=== PATIENT | male | born 1995 | race Caucasian/White ===

== ENCOUNTER 2024-04-23 10:44 | Emergency (ER) | payer OTHER ==
[~2024-04-23] VITALS: Ht 175.3 cm; Wt 54.5 kg
[2024-04-23 10:48] VITALS: BP 110/74; PULSE 78; RESP 18; TEMP 98.4; O2SAT 99
[2024-04-23] MEDS ORDERED: METH-530 PO (10:50)
[2024-04-23] MEDS: SODIUM CHLORIDE 0.9% 1,000 ML IV ONE (11:13)
[2024-04-23] MEDS: ONDANSETRON HCL 4 MG/2 ML VIAL IVP ONE (11:14)
[2024-04-23 11:24] LABS: BASOPHILS % (AUTO) 0.8 % (0.0-2.0); EOSINOPHILS % (AUTO) 0.5 % (1.0-6.0); HEMATOCRIT 44.9 % (41-53); HEMOGLOBIN 15.8 g/dL (13.5-17.5); LYMPHOCYTES % (AUTO) 48.2 % (22.0-44.0); MEAN CORPUSCULAR HEMOGLOBIN 31.8 pg (26.0-34.0); MEAN CORPUSCULAR HGB CONC 35.2 G/dL (31.0-37.0); MEAN CORPUSCULAR VOLUME 90 fL (80-100); MONOCYTES # (AUTO) 0.6 K/uL (0.1-1.0); MONOCYTES % (AUTO) 15.5 % (2.0-9.0); NEUTROPHILS # (AUTO) 1.4 K/uL (1.8-7.7); PLATELET COUNT (AUTO) 133 K/uL (150-450); RED BLOOD CELL COUNT(AUTO) 4.98 MIL/uL (4.50-5.90); RED CELL DISTRIBUTION WIDTH 13.2 % (11.5-14.5); WHITE BLOOD COUNT (AUTO) 4.1 K/uL (4.5-11.0)
[2024-04-23 11:36] LABS: ANION GAP 8 mmol/L (8-16); CARBON DIOXIDE 29 mmol/L (22-29); CHLORIDE 101 mmol/L (98-107); CREATININE 0.91 mg/dL (0.60-1.30); GLOMERULAR FILTR. RATE CALC > 60 mL/min (>60); GLUCOSE,RANDOM 96 mg/dL (70-110); POTASSIUM 3.4 mmol/L (3.5-5.1); SODIUM SERUM 138 mmol/L (136-145); UREA NITROGEN, BLOOD 8 mg/dL (7-18)
[2024-04-23 11:43] LABS: ALANINE AMINOTRANSFERASE 23 U/L (12-78); ALKALINE PHOSPHATASE 99 U/L (46-116); ASPARTATE AMINOTRANSFERASE 32 U/L (15-37); BILIRUBIN,TOTAL 0.4 mg/dL (0.1-1.0); LIPASE 42 U/L (16-77); TOTAL PROTEIN, SERUM 7.6 g/dL (6.4-8.2)
[2024-04-23] MEDS: POTASSIUM CHL 10 MEQ/WATER 50 ML IV ONE (12:51)
[2024-04-23] MEDS: PROCHLORPERAZINE EDISYLATE 5 MG/ML 2 ML VIAL IVP ONE (12:51)
[2024-04-23 13:03] LABS: PLATELET MORPHOLOGY COMMENT GIANT PLTS PRESENT
[2024-04-23] MEDS ORDERED: ONDA-104 PO (13:31)
== END 2024-04-23 15:00 | disposition home or self-care (01) ==
LOC: EMS 10:44
DX: K52.9 Noninfective gastroenteritis and colitis, unspecified (principal); E87.6 Hypokalemia; R11.2 Nausea with vomiting, unspecified; F12.90 Cannabis use, unspecified, uncomplicated
CPT/HCPCS: 99284; 96365; 96375; 96361; 80048; 80076; 83690; 83735; 85025; 36415; J2405; J0780; J3480; J7030

== ENCOUNTER 2024-09-17 11:02 | Emergency (ER) | payer OTHER ==
[~2024-09-17] VITALS: Ht 175.3 cm; Wt 63.6 kg
[~2024-09-17 11:02] MED LIST: METH-530 PO; ONDA-104 PO
[2024-09-17 11:03] VITALS: TEMP 98.4
[2024-09-17] MEDS ORDERED: ACET-2080 PO (12:00)
[2024-09-17] MEDS ORDERED: IBUP-1554 PO (12:00)
[2024-09-17] MEDS: IBUPROFEN 600 MG TABLET PO ONE (12:05)
[2024-09-17] MEDS: ACETAMINOPHEN/CODEINE 300-30 MG TABLET PO ONE (12:05)
[2024-09-17 12:30] VITALS: BP 122/81; PULSE 88; RESP 16; O2SAT 99
== END 2024-09-17 12:44 | disposition home or self-care (01) ==
LOC: EMS 11:02
DX: S52.121A Displaced fracture of head of right radius, initial encounter for closed fracture (principal); F12.90 Cannabis use, unspecified, uncomplicated; F90.9 Attention-deficit hyperactivity disorder, unspecified type; Z79.899 Other long term (current) drug therapy; V29.91XA Electric (assisted) bicycle rider (driver) (passenger) injured in unspecified traffic accident, initial encounter; Y93.55 Activity, bike riding; Y92.488 Other paved roadways as the place of occurrence of the external cause; Y99.8 Other external cause status
CPT/HCPCS: 99283